=== PATIENT | male | born 1995 | race Two or more races ===

== ENCOUNTER 2017-06-08 17:02 | Emergency (ER) | payer SELFPAY ==
[~2017-06-08] VITALS: Ht 185.4 cm; Wt 125.0 kg
[2017-06-08 18:22] VITALS: BP 168/103
== END 2017-06-08 18:25 | disposition home or self-care (01) ==
LOC: EME 17:02
DX: S83.91XA Sprain of unspecified site of right knee, initial encounter (principal); S93.401A Sprain of unspecified ligament of right ankle, initial encounter; X50.9XXA Other and unspecified overexertion or strenuous movements or postures, initial encounter; Y93.67 Activity, basketball; I10 Essential (primary) hypertension
CPT/HCPCS: 73564; 73610; 99281; 99284

== ENCOUNTER 2017-06-23 23:15 | Emergency (ER) | payer SELFPAY ==
[~2017-06-23] VITALS: Ht 185.4 cm; Wt 129.1 kg
[2017-06-23 23:29] VITALS: BP 159/97
[2017-06-23 23:57] LABS: HEMATOCRIT 47.2 % (38.0-50.0); MCH 27.1 PG (29.0-34.0); MCHC 32.4 G/DL (30.0-36.0); MCV 83.7 FL (86-99); MEAN PLAT.VOLUME 10.1 uM^3 (9.0-12.4); PLATELET COUNT 316 K/uL (156-360); RBC DIS.WIDTH-CV 12.8 % (11.8-14.6); RBC DIS.WIDTH-SD 39.1 % (39-53); RED BLOOD COUNT 5.64 M/uL (4.00-5.50)
[2017-06-24 00:15] LABS: CHLORIDE 107 mEq/L (99-109); SODIUM 142 mEq/L (136-147)
[2017-06-24 00:17] LABS: GLUCOSE 100 mg/dL (70-99)
[2017-06-24 00:18] LABS: ANION GAP 7 MEQ/L (2-14)
[2017-06-24 00:21] LABS: GFR ESTIMATE (CALCULATED) > 59 mL/min/; UREA NITROGEN (BUN) 19 mg/dL (9-23)
[2017-06-24 00:29] LABS: TROP-I INTERPRETATION NEGATIVE; TROPONIN-I 0.01 ng/mL (0.0-0.30)
== END 2017-06-24 00:05 | disposition left against medical advice (07) ==
LOC: EME 23:15
DX: R07.9 Chest pain, unspecified (principal); R06.02 Shortness of breath; Z53.21 Procedure and treatment not carried out due to patient leaving prior to being seen by health care provider
CPT/HCPCS: 80048; 84484; 85027; 93005